=== PATIENT | male | born 1990 | race Caucasian/White ===

== ENCOUNTER 2017-07-31 12:20 | Inpatient (IN) | payer BC, OTHER ==
[~2017-07-31] VITALS: Ht 172.7 cm; Wt 71.2 kg
[2017-07-31] MEDS ORDERED: NICOTINE POLACRILEX 4 MG GUM-PK OF TEN BC PRN (15:00)
[2017-07-31] MEDS ORDERED: NICOTINE 14 MG/24HR PATCH TD PRN (15:00)
[2017-07-31] MEDS ORDERED: LORAZEPAM 1 MG TABLET PO PRN (15:00)
[2017-07-31] MEDS ORDERED: MIRALAX 17 GM POWD.PACK PO PRN (15:00)
[2017-07-31] MEDS ORDERED: ONDANSETRON 4 MG/2 ML VIAL IM PRN (15:00)
[2017-07-31] MEDS ORDERED: MAGNESIUM HYDROXIDE 30 ML LIQUID UDC PO PRN (15:00)
[2017-07-31] MEDS ORDERED: LORAZEPAM 2 MG/1 ML VIAL IM PRN (15:00)
[2017-07-31] MEDS ORDERED: LOPERAMIDE HCL 2 MG CAPSULE PO PRN ×2 (15:00)
[2017-07-31] MEDS ORDERED: MAG HYDROX/AL HYDROX/SIMETH 30 ML LIQUID UDC PO PRN (15:00)
[2017-07-31] MEDS ORDERED: CLONIDINE HCL 0.1 MG TABLET PO PRN (15:00)
[2017-07-31] MEDS ORDERED: DICYCLOMINE HCL 20 MG TABLET PO PRN (15:00)
[2017-07-31 15:09] LABS: *AMPHETAMINE, URINE NEGATIVE (NEGATIVE); *BARBITURATE, URINE NEGATIVE (NEGATIVE); *CANNABINOID, URINE POSITIVE (NEGATIVE); *COCCAINE, URINE NEGATIVE (NEGATIVE); *OPIATE, URINE NEGATIVE (NEGATIVE); *PHENCYCLIDINE SCREEN,URINE NEGATIVE (NEGATIVE)
[2017-07-31 15:21] VITALS: BP 119/81
[2017-07-31] MEDS: LORAZEPAM 1 MG TABLET PO SCH ×2 (16:08→21:36)
[2017-07-31] MEDS: BUPRENORPHINE HCL 2 MG TAB.SUBL SL SCH ×2 (16:09→21:35)
[2017-07-31] MEDS ORDERED: QUET100T PO (16:22)
[2017-07-31 16:47] LABS: BASOPHILS # (AUTO) 0.1 K/uL (0.0-8.0); BASOPHILS % (AUTO) 0.6 % (0.0-2.0); EOSINOPHILS # (AUTO) 0.3 K/uL (0.0-0.7); EOSINOPHILS % (AUTO) 2.6 % (0.0-7.0); HEMATOCRIT 44.1 % (36.7-47.1); HEMOGLOBIN 14.9 g/dL (12.5-16.3); LYMPHOCYTES # (AUTO) 4.3 K/uL (20.0-40.0); LYMPHOCYTES % (AUTO) 43.5 % (20.5-51.5); MEAN CORPUSCULAR HEMOGLOBIN 30.8 uug (23.8-33.4); MEAN CORPUSCULAR HGB CONC 34 g/dL (32.5-36.3); MEAN CORPUSCULAR VOLUME 91.2 fL (73.0-96.2); MONOCYTES # (AUTO) 0.8 K/uL (2.0-10.0); MONOCYTES % (AUTO) 7.7 % (0.0-11.0); NEUTROPHILS # (AUTO) 4.5 K/uL (1.8-8.9); NEUTROPHILS % (AUTO) 45.6 % (38.5-71.5); PLATELET COUNT (AUTO) 254 K/uL (152-348); RED BLOOD CELL COUNT(AUTO) 4.84 MIL/uL (4.06-5.63); WHITE BLOOD COUNT (AUTO) 9.9 K/uL (3.6-10.2)
[2017-07-31 16:58] LABS: ALANINE AMINOTRANSFERASE 60 U/L (16-63); ALKALINE PHOSPHATASE 87 U/L (50-136); ASPARTATE AMINOTRANSFERASE 20 U/L (15-37); BILIRUBIN,TOTAL 0.5 mg/dL (0.2-1.0); CARBON DIOXIDE 24 mmol/L (21-32); CHLORIDE 100 mmol/L (98-107); GLUCOSE 112 mg/dL (74-106); POTASSIUM 3.4 mmol/L (3.5-5.1); TOTAL PROTEIN, SERUM 7.8 g/dL (6.4-8.2); UREA NITROGEN, BLOOD 14 mg/dL (7-18)
[2017-07-31 16:59] LABS: ETHANOL < 3 MG/DL (0-0)
[2017-07-31 17:00] VITALS: BP 124/84
[2017-07-31] MEDS: BUPRENORPHINE HCL 2 MG TAB.SUBL SL PRN (17:29)
[2017-07-31] MEDS ORDERED: POTASSIUM CHLORIDE 10 MEQ TAB.PRT.SR PO ONE ×2 (19:00→22:30)
[2017-07-31 20:00] VITALS: BP 121/71
[2017-07-31] MEDS: diphenhydrAMINE 50 MG CAPSULE PO PRN (21:35)
[2017-07-31] MEDS: GABAPENTIN 300 MG CAPSULE PO SCH (21:36)
[2017-07-31] MEDS: ONDANSETRON ODT 4 MG TAB.RAPDIS SL PRN (23:46)
[2017-08-01] VITALS: BP 118/74
[2017-08-01] MEDS: LORAZEPAM 1 MG TABLET PO PRN (01:51)
[2017-08-01] MEDS: BUPRENORPHINE HCL 2 MG TAB.SUBL SL PRN (05:06)
[2017-08-01 08:03] VITALS: BP 112/69
[2017-08-01] MEDS: BUPRENORPHINE HCL 2 MG TAB.SUBL SL SCH ×3 (08:11→21:36)
[2017-08-01] MEDS: GABAPENTIN 300 MG CAPSULE PO SCH ×3 (08:11→21:37)
[2017-08-01] MEDS: LORAZEPAM 1 MG TABLET PO SCH ×3 (08:11→21:36)
[2017-08-01] MEDS ORDERED: TUBERCULIN,PURIF.PROT.DERIV. 5 TU/0.1 ML TEST ID ONE (09:00)
[2017-08-01] MEDS: METHOCARBAMOL 750 MG TABLET PO PRN (09:43)
[2017-08-01] MEDS: IBUPROFEN 600 MG TABLET PO PRN (09:43)
[2017-08-01 12:00] VITALS: BP 111/71
[2017-08-01] MEDS: DICYCLOMINE HCL 20 MG TABLET PO SCH ×2 (14:15→21:37)
[2017-08-01] MEDS: ONDANSETRON ODT 4 MG TAB.RAPDIS SL PRN (14:16)
[2017-08-01] MEDS: ACETAMINOPHEN 325 MG TABLET PO PRN (14:16)
[2017-08-01 16:00] VITALS: BP 107/62
[2017-08-01] MEDS ORDERED: QUETIAPINE FUMARATE 100 MG TABLET PO SCH (18:00)
[2017-08-01 20:00] VITALS: BP 110/70
[2017-08-01] MEDS ORDERED: CLONIDINE HCL 0.1 MG TABLET PO SCH (21:00)
[2017-08-01] MEDS: diphenhydrAMINE 50 MG CAPSULE PO PRN (21:37)
[2017-08-02 04:00] VITALS: BP 109/71
[2017-08-02] MEDS: METHOCARBAMOL 750 MG TABLET PO PRN (07:30)
[2017-08-02] MEDS: LORAZEPAM 1 MG TABLET PO PRN (07:30)
[2017-08-02] MEDS: ONDANSETRON ODT 4 MG TAB.RAPDIS SL PRN (07:30)
[2017-08-02 08:00] VITALS: BP 127/67
[2017-08-02] MEDS: DICYCLOMINE HCL 20 MG TABLET PO SCH ×3 (08:30→21:07)
[2017-08-02] MEDS: GABAPENTIN 300 MG CAPSULE PO SCH ×2 (08:30→15:34)
[2017-08-02] MEDS ORDERED: BUPRENORPHINE HCL 2 MG TAB.SUBL SL SCH ×2 (09:00→15:00)
[2017-08-02] MEDS ORDERED: LORAZEPAM 1 MG TABLET PO SCH ×2 (09:00→21:00)
[2017-08-02] MEDS: IBUPROFEN 600 MG TABLET PO PRN (10:11)
[2017-08-02] MEDS ORDERED: LORAZEPAM 1 MG TABLET PO PRN ×2 (11:15)
[2017-08-02 12:00] VITALS: BP 116/71
[2017-08-02] MEDS: LORAZEPAM 1 MG TABLET PO SCH ×2 (13:20→17:26)
[2017-08-02] MEDS: ACETAMINOPHEN 325 MG TABLET PO PRN (13:20)
[2017-08-02] MEDS: BUPRENORPHINE HCL 2 MG TAB.SUBL SL SCH ×3 (13:26→21:09)
[2017-08-02] MEDS: KETOROLAC TROMETHAMINE 30 MG INJ IM PRN (15:37)
[2017-08-02 16:30] VITALS: BP 123/75
[2017-08-02 20:00] VITALS: BP 112/70
[2017-08-02] MEDS ORDERED: QUETIAPINE FUMARATE 100 MG TABLET PO SCH (21:00)
[2017-08-02] MEDS ORDERED: GABAPENTIN 300 MG CAPSULE PO SCH (21:00)
[2017-08-02] MEDS: CLONIDINE HCL 0.1 MG TABLET PO SCH (21:07)
[2017-08-02] MEDS: diphenhydrAMINE 50 MG CAPSULE PO PRN (21:08)
[2017-08-02] MEDS: BACLOFEN 10 MG TABLET PO SCH (21:08)
[2017-08-03 03:06] LABS: HEPATITIS B SURFACE AG Negative (Negative)
[2017-08-03 08:55] VITALS: BP 106/58
[2017-08-03] MEDS: BACLOFEN 10 MG TABLET PO SCH ×3 (09:10→20:27)
[2017-08-03] MEDS: BUPRENORPHINE HCL 2 MG TAB.SUBL SL SCH ×3 (09:10→20:27)
[2017-08-03] MEDS: LORAZEPAM 1 MG TABLET PO SCH ×3 (09:10→20:27)
[2017-08-03] MEDS: DICYCLOMINE HCL 20 MG TABLET PO SCH ×3 (09:10→20:27)
[2017-08-03] MEDS: GABAPENTIN 300 MG CAPSULE PO SCH ×3 (09:10→20:27)
[2017-08-03] MEDS: CLONIDINE HCL 0.1 MG TABLET PO SCH ×3 (09:11→21:00)
[2017-08-03] MEDS: IBUPROFEN 600 MG TABLET PO PRN (12:20)
[2017-08-03] MEDS: METHOCARBAMOL 750 MG TABLET PO PRN (12:20)
[2017-08-03] MEDS: HYDROXYZINE PAMOATE 25 MG CAPSULE PO PRN (12:20)
[2017-08-03 12:31] VITALS: BP 94/49
[2017-08-03 16:30] VITALS: BP 112/63
[2017-08-03 20:00] VITALS: BP 108/57
[2017-08-03] MEDS: KETOROLAC TROMETHAMINE 30 MG INJ IM PRN (20:31)
[2017-08-03] MEDS ORDERED: QUETIAPINE FUMARATE 100 MG TABLET PO SCH (21:00)
[2017-08-03] MEDS: QUETIAPINE FUMARATE 200 MG TABLET PO SCH (23:10)
[2017-08-04] VITALS: BP 113/70
[2017-08-04] MEDS ORDERED: BUPRENORPHINE HCL 2 MG TAB.SUBL SL SCH (09:00)
[2017-08-04] MEDS ORDERED: LORAZEPAM 1 MG TABLET PO SCH (09:00)
[2017-08-04] MEDS: BACLOFEN 10 MG TABLET PO SCH (10:07)
[2017-08-04] MEDS: CLONIDINE HCL 0.1 MG TABLET PO SCH ×3 (10:08→21:00)
[2017-08-04] MEDS: DICYCLOMINE HCL 20 MG TABLET PO SCH ×3 (10:08→21:00)
[2017-08-04] MEDS: GABAPENTIN 300 MG CAPSULE PO SCH (10:09)
[2017-08-04 10:15] VITALS: BP 138/77
[2017-08-04 14:15] VITALS: BP 109/58
[2017-08-04] MEDS: BUPRENORPHINE HCL 2 MG TAB.SUBL SL SCH ×2 (15:38→21:00)
[2017-08-04] MEDS: BACLOFEN 20 MG TABLET PO SCH ×2 (15:38→21:00)
[2017-08-04] MEDS: LORAZEPAM 1 MG TABLET PO SCH ×2 (15:39→21:00)
[2017-08-04] MEDS: GABAPENTIN 400 MG CAPSULE PO SCH ×2 (15:39→21:00)
[2017-08-04 16:30] VITALS: BP 108/87
[2017-08-04] MEDS ORDERED: QUET200T PO (16:54)
[2017-08-04] MEDS ORDERED: BACL20TA PO (16:54)
[2017-08-04] MEDS ORDERED: DICY20TA28 PO (16:54)
[2017-08-04] MEDS ORDERED: CLON0.1T14 PO (16:54)
[2017-08-04] MEDS ORDERED: IBUP-1955 PO (16:54)
[2017-08-04] MEDS ORDERED: GABA-536 PO (16:54)
[2017-08-04] MEDS ORDERED: HYDR-3895 PO (16:54)
[2017-08-04 20:19] VITALS: BP 115/60
[2017-08-04] MEDS: QUETIAPINE FUMARATE 200 MG TABLET PO SCH (21:00)
[2017-08-05 00:20] VITALS: BP 112/64
[2017-08-05 04:22] VITALS: BP 124/72
[2017-08-05 08:00] VITALS: BP 117/79
[2017-08-05] MEDS: DICYCLOMINE HCL 20 MG TABLET PO SCH ×3 (08:55→20:35)
[2017-08-05] MEDS: GABAPENTIN 400 MG CAPSULE PO SCH ×3 (08:56→20:35)
[2017-08-05] MEDS: BACLOFEN 20 MG TABLET PO SCH ×3 (08:56→20:35)
[2017-08-05] MEDS: CLONIDINE HCL 0.1 MG TABLET PO SCH ×3 (08:56→20:35)
[2017-08-05] MEDS ORDERED: LORAZEPAM 1 MG TABLET PO SCH (09:00)
[2017-08-05] MEDS ORDERED: BUPRENORPHINE HCL 2 MG TAB.SUBL SL SCH (09:00)
[2017-08-05 12:00] VITALS: BP 130/85
[2017-08-05 16:00] VITALS: BP 108/80
[2017-08-05 20:08] VITALS: BP 120/73
[2017-08-05] MEDS: QUETIAPINE FUMARATE 200 MG TABLET PO SCH (20:35)
[2017-08-06 00:30] VITALS: BP 127/74
[2017-08-06 04:34] VITALS: BP 129/78
[2017-08-06 08:00] VITALS: BP 100/62
[2017-08-06] MEDS: IBUPROFEN 600 MG TABLET PO PRN (08:38)
[2017-08-06] MEDS: BACLOFEN 20 MG TABLET PO SCH (08:38)
[2017-08-06] MEDS: GABAPENTIN 400 MG CAPSULE PO SCH (08:38)
[2017-08-06] MEDS: HYDROXYZINE PAMOATE 25 MG CAPSULE PO PRN (08:39)
[2017-08-06] MEDS: DICYCLOMINE HCL 20 MG TABLET PO SCH (08:39)
[2017-08-06 09:00] VITALS: BP 96/64
[2017-08-06] MEDS: CLONIDINE HCL 0.1 MG TABLET PO SCH (09:00)
== END 2017-08-06 09:40 | disposition other institution (70) | DRG 895 ==
LOC: SRC 14:28
PROVIDERS: ADMIT Internal Medicine; ATTEND Internal Medicine
PROC: HZ2ZZZZ Detoxification Services for Substance Abuse Treatment (ICD-10-PCS; principal; 2017-07-31)
PROC: HZ41ZZZ Group Counseling for Substance Abuse Treatment, Behavioral (ICD-10-PCS; 2017-08-02)
PROC: HZ31ZZZ Individual Counseling for Substance Abuse Treatment, Behavioral (ICD-10-PCS; 2017-08-03)
DX: F13.230 Sedative, hypnotic or anxiolytic dependence with withdrawal, uncomplicated (principal); I15.9 Secondary hypertension, unspecified; E87.1 Hypo-osmolality and hyponatremia; F11.23 Opioid dependence with withdrawal; F12.20 Cannabis dependence, uncomplicated; F14.10 Cocaine abuse, uncomplicated; F17.210 Nicotine dependence, cigarettes, uncomplicated; F90.9 Attention-deficit hyperactivity disorder, unspecified type; G47.00 Insomnia, unspecified; Z91.89 Other specified personal risk factors, not elsewhere classified; F41.9 Anxiety disorder, unspecified; Z81.1 Family history of alcohol abuse and dependence; Z81.8 Family history of other mental and behavioral disorders; S93.401A Sprain of unspecified ligament of right ankle, initial encounter; X58.XXXA Exposure to other specified factors, initial encounter; Y92.89 Other specified places as the place of occurrence of the external cause; E87.6 Hypokalemia; F32.9 Major depressive disorder, single episode, unspecified; R73.9 Hyperglycemia, unspecified; F15.10 Other stimulant abuse, uncomplicated; Z79.899 Other long term (current) drug therapy; F13.239 Sedative, hypnotic or anxiolytic dependence with withdrawal, unspecified
CPT/HCPCS: 36415; 70030-TC; 73610; 80307; 80346; 80349; 83735; 85025; 86580; 86592; 86705; 86803; 87340; 87806; A4663; G0480; J1885; Q0162; Q0163